=== PATIENT | male | born 1935 | race Caucasian/White ===

== ENCOUNTER 2018-02-06 10:11 | Day surgery (SDC) | payer MEDICARE, BC ==
[~2018-02-06 10:11] MED LIST: Dilation Soln 1 EA EACH EYERT ONE; Moxifloxacin 0.5% Ophth Soln 3 ML Bottle EYERT ONE; Phenylephrine 10% Ophth Soln 5 ML Bot EYERT ONE; Povidone-Iodine 5% Sterile Ophth Soln 30 ML Bottle EYERT ONE; Proparacaine 0.5% Ophth Soln 15 ML Bottle EYERT ONE; Sodium Chloride 0.9% 10 ML Syringe FLUSH SCH; Timolol Maleate 0.5% Ophth Soln 5 ML Bottle EYERT ONE
[2018-02-06] MEDS ORDERED: Midazolam 1 MG/ML 2 ML SDV IV ONE (10:12)
[2018-02-06] MEDS ORDERED: Sodium Chloride 0.9% 10 ML Syringe IV ONE (10:12)
[2018-02-06] MEDS ORDERED: Dexamethasone 4 MG/ML SDV IV ONE (10:12)
[2018-02-06] MEDS ORDERED: Povidone-Iodine 5% Sterile Ophth Soln 30 ML Bottle EYERT ONE (11:31)
[2018-02-06] MEDS ORDERED: Tetracaine HCl/PF 0.5% 4 ML Bottle EYERT ONE (11:31)
[2018-02-06] MEDS ORDERED: Erythromycin Base 0.5% Ophth Oint 1 GM Tube EYEBOTH ONE (11:33)
[2018-02-06] MEDS ORDERED: Lidocaine 1% 30 ML SDV INJECT ONE (11:37)
[2018-02-06] MEDS ORDERED: Chondroitin Sulfate/Hyaluronate Sodium Ophth Inj 0.75 ML Syringe EYERT ONE (11:39)
[2018-02-06] MEDS ORDERED: Balanced Salt Solution Ophth Irrig 500 ML Bottle IOCULAR ONE (11:39)
[2018-02-06] MEDS ORDERED: Vancomycin 500 MG SDV EYERT ONE (11:40)
[2018-02-06] MEDS ORDERED: Lidocaine 2% with EPINEPHrine 1:200,000 10 ML SDV INJECT ONE ×2 (11:41)
[2018-02-06] MEDS ORDERED: Apraclonidine 0.5% Ophth Soln 5 ML Bot EYERT ONE (11:57)
[2018-02-06] MEDS ORDERED: Dexamethasone/Neomycin/Polymyxin B Ophth Oint 3.5 GM Tube EYERT ONE (11:57)
[2018-02-06] MEDS ORDERED: Diclofenac Sodium 0.1% Ophth Soln 5 ML Bottle EYERT ONE (11:57)
--- NOTE | 2018-02-06 12:53 | OR ---
DATE: 02/06/2018 PREOPERATIVE DIAGNOSIS: Visually significant mixed cataract, right eye. POSTOPERATIVE DIAGNOSIS: Visually significant mixed cataract, right eye. PROCEDURES: 1. Extracapsular cataract extraction with intraocular lens implant, right eye. 2. Lesion excision, left upper lid, unspecified. ANESTHESIA: Topical/local MAC. COMPLICATIONS: None. INDICATION: The patient was seen in the clinic. He is unhappy with his vision. His examination revealed visually significant cataract in the right eye with limited vision. Examination also reveals a 7 x 7 mm lesion in the left upper lid. I explained options; I offered cataract surgery; and I also offered excision of the lesion in the left upper lid. I explained risks which would include infection, retinal detachment, and loss of vision amongst others. I also explained risks associated with lesion excision including this potential need for additional surgery pending the pathologic diagnosis. He voiced an understanding and requested surgery. OPERATIVE DESCRIPTION: After informed consent was obtained and the risks, benefits, and alternatives were explained, the patient was brought to the operative suite and topical anesthesia was administered. The patient was then prepped and draped in the sterile fashion, and attention was placed on the right eye. A sterile lid speculum was placed into the right eye to allow operative exposure. A full-thickness paracentesis was made in the temporal portion of the operative eye. Preservative-free lidocaine 0.1 mL was injected into the anterior chamber followed by viscoelastic. A full-thickness corneal incision was then made into the anterior chamber. A bent needle cystotome was used to create a small sloan in the anterior capsule. The capsulorrhexis forceps was then used to create a 360-degree curvilinear capsulorrhexis. The nucleus was then removed using a phacoemulsification handpiece, and the remaining cortical material was then removed with irrigation and aspiration handpiece. Following removal of the cortical material, the capsular bag was then inspected and noted to be free of any holes or tears. Viscoelastic was then injected into the capsular bag, and the intraocular lens was inserted into the capsular bag. The viscoelastic material was then removed from both the anterior and posterior chambers and from behind the IOL. The lens and capsular bag were then reinspected. The IOL was well centered and the capsular bag intact. The wound and paracentesis sites were inspected and hydrated with balanced saline solution. Both were found to be self-sealing. The intraocular pressure was assessed digitally and found to be within normal range. A good red reflex was noted at the completion of the procedure. No complications occurred during the operation. At the completion of the procedure, Maxitrol, Voltaren, and Iopidine drops were placed into the operative eye. A sterile eye shield was placed over the operative eye, and the patient was transported to the postoperative recovery area having tolerated the procedure well. Postoperative instructions were given along with a postoperative appointment. The patient was advised to call with any questions or concerns. At the end of the cataract procedure, the drape was removed. Attention was placed on the left upper lid. The left upper lid was prepped and draped in the sterile fashion. The lesion on the left upper lid was circumscribed using a felt-tip marking pen, leaving an additional 1-mm margin. The lesion was then infiltrated with 2% lidocaine with epinephrine. After adequate anesthesia was obtained, a #11 blade was used to circumscribe the lesion. The lesion was excised in its entirety and sent for pathologic evaluation. There was some spontaneous discharge of lipogenous material. Total excision size measured 9 x [address] 3 interrupted 6-0 Prolene sutures to reapproximate the incision site. Antibiotic ointment was placed over the incision. The patient was transported to the postoperative recovery area having tolerated the procedure well. No complications occurred. VANDANA /[id number]
== END 2018-02-06 12:59 | disposition home or self-care (01) ==
LOC: DL.SDS 10:11
PROVIDERS: ATTEND Ophthalmology
DX: H25.811 Combined forms of age-related cataract, right eye (principal); L72.0 Epidermal cyst; I10 Essential (primary) hypertension; E78.5 Hyperlipidemia, unspecified; I25.10 Atherosclerotic heart disease of native coronary artery without angina pectoris; N40.0 Benign prostatic hyperplasia without lower urinary tract symptoms; M10.9 Gout, unspecified; K21.9 Gastro-esophageal reflux disease without esophagitis; Z79.82 Long term (current) use of aspirin; Z79.899 Other long term (current) drug therapy
CPT/HCPCS: 00142; 11441; 66984; A9270; J1100; J2250; J3370; J7050; V2632; 88304

== ENCOUNTER 2018-02-13 10:26 | Day surgery (SDC) | payer MEDICARE, BC ==
[2018-02-13] MEDS ORDERED: Dexamethasone 4 MG/ML SDV IV ONE (10:27)
[2018-02-13] MEDS ORDERED: Midazolam 1 MG/ML 2 ML SDV IV ONE (10:27)
[2018-02-13] MEDS ORDERED: Sodium Chloride 0.9% 10 ML Syringe IV ONE (10:27)
[2018-02-13] MEDS ORDERED: hydrALAZINE 20 MG/ML SDV IV ONE (10:27)
[2018-02-13] MEDS ORDERED: Proparacaine 0.5% Ophth Soln 15 ML Bottle EYELF ONE (10:31)
[2018-02-13] MEDS ORDERED: Povidone-Iodine 5% Sterile Ophth Soln 30 ML Bottle EYELF ONE ×2 (10:31→11:12)
[2018-02-13] MEDS ORDERED: Moxifloxacin 0.5% Ophth Soln 3 ML Bottle EYELF ONE (10:31)
[2018-02-13] MEDS ORDERED: Dilation Soln 1 EA EACH EYELF ONE (10:31)
[2018-02-13] MEDS ORDERED: Timolol Maleate 0.5% Ophth Soln 5 ML Bottle EYELF ONE (10:31)
[2018-02-13] MEDS ORDERED: Phenylephrine 10% Ophth Soln 5 ML Bot EYELF ONE (10:31)
[2018-02-13] MEDS ORDERED: Sodium Chloride 0.9% 10 ML Syringe FLUSH SCH (10:45)
[2018-02-13] MEDS ORDERED: Tetracaine HCl/PF 0.5% 4 ML Bottle EYELF ONE (11:12)
[2018-02-13] MEDS ORDERED: Lidocaine 1% 30 ML SDV INJECT ONE (11:18)
[2018-02-13] MEDS ORDERED: Vancomycin 500 MG SDV EYELF ONE (11:20)
[2018-02-13] MEDS ORDERED: Chondroitin Sulfate/Hyaluronate Sodium Ophth Inj 0.75 ML Syringe EYELF ONE (11:21)
[2018-02-13] MEDS ORDERED: Balanced Salt Solution Ophth Irrig 500 ML Bottle IOCULAR ONE (11:21)
[2018-02-13] MEDS ORDERED: Apraclonidine 0.5% Ophth Soln 5 ML Bot EYELF ONE (11:28)
[2018-02-13] MEDS ORDERED: Dexamethasone/Neomycin/Polymyxin B Ophth Oint 3.5 GM Tube EYELF ONE (11:28)
[2018-02-13] MEDS ORDERED: Diclofenac Sodium 0.1% Ophth Soln 5 ML Bottle EYELF ONE (11:28)
--- NOTE | 2018-02-13 11:59 | OR ---
DATE: 02/13/2018 PREOPERATIVE DIAGNOSIS: Visually significant mixed cataract, left eye. POSTOPERATIVE DIAGNOSIS: Visually significant mixed cataract, left eye. PROCEDURE: Extracapsular cataract extraction with intraocular lens implant, left eye. ANESTHESIA: Topical/local MAC. COMPLICATIONS: None. INDICATION: Mr. Serna was seen in the clinic. His examination revealed mixed nuclear and cortical cataract. He is unhappy with his vision with complaints that the vision is blurry to difficulty watching television. He has noticed a progressive change. I explained options; I offered cataract surgery; and I explained risks including the potential for infection, retinal detachment, loss of vision, and need for additional surgery amongst others. We discussed implant options. He requested surgery with a monofocal implant. OPERATIVE DESCRIPTION: After informed consent was obtained and the risks, benefits, and alternatives were explained, the patient was brought to the operative suite and topical anesthesia was administered. The patient was then prepped and draped in the sterile fashion, and attention was placed on the left eye. A sterile lid speculum was placed into the left eye to allow operative exposure. A full-thickness paracentesis was made in the temporal portion of the operative eye. Preservative-free lidocaine 0.1 mL was injected into the anterior chamber followed by viscoelastic. A full-thickness corneal incision was then made into the anterior chamber. A bent needle cystotome was used to create a small sloan in the anterior capsule. The capsulorrhexis forceps was then used to create a 360-degree curvilinear capsulorrhexis. The nucleus was then removed using a phacoemulsification handpiece, and the remaining cortical material was then removed with irrigation and aspiration handpiece. Following removal of the cortical material, the capsular bag was then inspected and noted to be free of any holes or tears. Viscoelastic was then injected into the capsular bag, and the intraocular lens was inserted into the capsular bag. The viscoelastic material was then removed from both the anterior and posterior chambers and from behind the IOL. The lens and capsular bag were then reinspected. The IOL was well centered and the capsular bag intact. The wound and paracentesis sites were inspected and hydrated with balanced saline solution. Both were found to be self-sealing. The intraocular pressure was assessed digitally and found to be within normal range. A good red reflex was noted at the completion of the procedure. No complications occurred during the operation. At the completion of the procedure, Chrissy Bethea, and Iopidine drops were placed into the operative eye. A sterile eye shield was placed over the operative eye, and the patient was transported to the postoperative recovery area having tolerated the procedure well. Postoperative instructions were given along with a postoperative appointment. The patient was advised to call with any questions or concerns. [facility] /[id number]
== END 2018-02-13 12:31 | disposition home or self-care (01) ==
LOC: DL.SDS 10:26
PROVIDERS: ATTEND Ophthalmology
DX: H25.812 Combined forms of age-related cataract, left eye (principal); I25.10 Atherosclerotic heart disease of native coronary artery without angina pectoris; I10 Essential (primary) hypertension; E78.2 Mixed hyperlipidemia; M10.9 Gout, unspecified; K21.9 Gastro-esophageal reflux disease without esophagitis; Z98.41 Cataract extraction status, right eye; Z96.1 Presence of intraocular lens; Z79.02 Long term (current) use of antithrombotics/antiplatelets; Z79.82 Long term (current) use of aspirin; Z79.899 Other long term (current) drug therapy
CPT/HCPCS: 00142; A9270-GY; C1780; J0360; J1100; J2250; J3370; J7050